=== PATIENT | male | born 1950 | race Caucasian/White ===

== ENCOUNTER 2017-11-26 16:07 | Outpatient (CLI) | payer BC, OTHER ==
[~2017-11-26 16:07] MED LIST: CALC0.5C11; CALCIUM; DIOVAN; HCTZ; METOPROLOL; NORVASC; SYNTHROID
== END 2017-11-26 22:00 | disposition home or self-care (01) ==
LOC: SRD 16:07
PROVIDERS: ATTEND Internal Medicine
DX: M17.12 Unilateral primary osteoarthritis, left knee (principal)
CPT/HCPCS: 73564